=== PATIENT | male | born 1995 | race Caucasian/White ===

== ENCOUNTER 2020-06-15 16:25 | Emergency (ER) | payer BC ==
--- NOTE | 2020-06-15 16:44 | PDOC ---
Rapid Medical Evaluation Chief Complaint: Injury Time Seen by Provider: 06/15/20 16:42 Medical Evaluation: 06/15/20 16:43 CC: twisted left ankle Exam: tender to medial and lateral of left mallelous Plan: xray Discharge Disposition - Diagnosis Ankle injury - Referrals - Patient Instructions - Post Discharge Activity
[2020-06-15 16:54] VITALS: BP 144/85; PULSE 108; TEMP 98.6; BMI 29.8
--- OUTSIDE RECORDS SUMMARY | 2020-06-15 16:56 | XMS ---
:1995 Author Organization [facility] Care Team Providers Name Role Phone Ede Unavailable [phone] Ede Unavailable [phone] Ede Unavailable [phone] Ede Unavailable [phone] Ede Unavailable [phone] GRAVES IRWIN W Unavailable Unavailable ASHLEY BURT L Unavailable Unavailable ED STAFF PHYSICIAN Unavailable Unavailable Garden DPM Unavailable Garden DPM Unavailable Nlam Unavailable [phone] Nlam Unavailable [phone] MONY NEW CAR DRIVER Unavailable MONY NEW CAR DRIVER Unavailable MONY NEW CAR DRIVER Unavailable EDE NAYEL Unavailable Unavailable EMANUEL Moore Unavailable Unavailable MONY EVER Unavailable Unavailable Re-disclosure Warning The records that you are about to access may contain information from federally- assisted alcohol or drug abuse programs. If such information is present, then the following federally mandated warning applies: This information has been disclosed to you from records protected by federal confidentiality rules (42 CFR part 2). The federal rules prohibit you from making any further disclosure of this information unless further disclosure is expressly permitted by the written consent of the person to whom it pertains or as otherwise permitted by 42 CFR part 2. A general authorization for the release of medical or other information is NOT sufficient for this purpose. The Federal rules restrict any use of the information to criminally investigate or prosecute any alcohol or drug abuse patient.The records that you are about to access may contain highly sensitive health information, the redisclosure of which is protected by Article 27-F of the [facility] Public Health law. If you continue you may haveaccess to information: Regarding HIV / AIDS; Provided by facilities licensed or operated by the [facility] Office of Mental Health; or Provided by the [facility] Office for People With Developmental Disabilities. If such information is present, then the following [facility] mandated warning applies: This information has been disclosed to you from confidential records which are protected by state law. State law prohibits you from making any further disclosure of this information without the specific written consent of the person to whom it pertains, or as otherwise permitted by law. Any unauthorized further disclosure in violation of state law may result in a fine or [place] health care facility sentence or both. A general authorization for the release of medical or other information is NOT sufficient authorization for further disclosure. Family History Family Member Family Member Family Member Date of Description Data Source(s) Name Gender Status Status Unknown Female Diagnosis 04/03/2018 [facility] ([facility] 12:00:00 [facility]) Unknown Female [facility] 12[facility]00 AM [facility]) Unknown Female Diagnosis [facility] 12:[facility]:00 [facility]) Encounters Encounter Providers Location Date Indications Data Source(s ) Outpatient Attender: 02/09/20 Leeanna NAYEL EDE 20 [facility] er NAYELAdmitter 11:46:00 : NAYEL AM EDT - EDE 02/09/20 NAYELReferrer 20 : NAYEL 04:25:00 EDE NAYEL PM EDT Attender: 02/09/20 [facility] ([facility] Nayel Ede 20 [facility] 11:46:00 Center) AM EDT - 02/09/20 20 11:46:00 AM EDT Outpatient Admitter: 02/09/20 [facility] NAYEL 08:05:00 AM EDT Outpatient Attender: 02/04/[address] NEUENDORF 07:39:00 CARMEL AM EDT LAdmitter: CARMEL BURT LReferrer: CARMEL Killian Outpatient<td Attender: Kaley 01/14/20 CARROLL (M o[facility] Boogie ypeDescription [facility] 10:00:00 Neighbo rhood ID0">OFFICE AM EDT - [facility] [place] ) VISIT</td><td> 01/14/20 Esme Amayasom 20 DP</td><td>Yo 10:32:30 nkers AM EDT [facility]</td><td >01/14/2020</t d><td></td> Outpatient<td Attender: Kaley 01/13/20 CARROLL (M ount ID="encounterT [address] ypeDescription [facility] 10:15:00 Neigh borhood ID1">*OUTREACH AM EDT - [facility]) *</td><td>GIFT 01/13/20 Y MONY 20 NEW CAR DRIVER</td><td>Yo 11:59:00 nkers PM EDT [facility]</td><td >01/13/2020</t d><td></td> Outpatient Attender: 01/12/[address] MONY 03:10:00 GIFTYAdmitter PM EDT : EVER SYKES GIFTYReferrer : EVER CURTIS Outpatient<td Attender: Kaley 01/12/20 Seborrheic CARROLL (M ount ID="encounterT [place] [address] DermatitisAbdominal V ernon ypeDescription [facility] 11:45:00 BloatingDisorder of Neighborhood ID2">WALKINS</ AM EDT - [facility]) td><td>EVER 01/12/20 SinusesArthralgia - MONY 20 Ankle / FootUrinary NEW CAR DRIVER</td><td>Yo 01:19:26 CalculusSeborrheic nkers PM EDT DermatitisAbdominal Community [facility]Dis[facility]</td><td SinusesArthralgia - >01/12/2020</t Ankle / FootUrinary d><td><content CalculusSeborrheic ID="encounterD DermatitisAbdominal iagnosisID2-0" BloatingDisorder of >Urinary Nasal Calculus</cont SinusesArthralgia - ent>, <content Ankle / FootUrinary ID="encounterD CalculusAbdominal iagnosisID2-1" BloatingDisorder of >Arthralgia - Nasal Ankle / SinusesArthralgia - Foot</content> Ankle / FootUrinary , <content Calculus ID="encounterD iagnosisID2-2" >Disorder of Nasal Sinuses</shahid nt>, <content ID="encounterD iagnosisID2-3" >Abdominal Bloating</cont ent>, <content ID="encounterD iagnosisID2-4" >Seborrheic Dermatitis</co ntent></td> Seborrheic Dermatitis Abdominal Bloating Disorder of Nasal Sinuses Arthralgia - Ankle / Foot Urinary Calculus Seborrheic Dermatitis Abdominal Bloating Disorder of Nasal Sinuses Arthralgia - Ankle / Foot Urinary Calculus Seborrheic Dermatitis Abdominal Bloating Disorder of Nasal Sinuses Arthralgia - Ankle / Foot Urinary Calculus Abdominal Bloating Disorder of Nasal Sinuses Arthralgia - Ankle / Foot Urinary Calculus Emergency Attender: ZOEY Beltran 01/10/2020 04:38 :00 PM [facility] CAttender: MIRIAM GAYLE EDT - 01/10/2020 Medical Center WAttender: STAFF ED STAFF 07:50:00 PM EDT PHYSICIANAdmitter: ZOEY Moore Patient discharged. Attender: Cristino Chang [facility] 12/14[facility]2019 [facility]:51:[facility] AM EDT - 12/14/2019 [facility] 11:51:00 AM EDT Center) Outpatient 12/11/2019 12:38:00 [facility] EDT Medical Center Outpatient [facility] Medications Medication Brand Start Product Dose Route Administrative Pharmacy St atus Indications Reaction Description Data Name Date Form Instructions Instructions Source(s) Selsun Blue Selsun 01/11/ APPLICAT active Rocio sun Blue MAMIE Dry Scalp Blue 2020 ION UNIT (Mount 1% External Dry 12:00: Boogie Shampoo Scalp 00 AM [place] [facility] al Shampo o [place] 0.65% [place] 01/11/ CAPFUL 1 active Sea Soft MAMIE Nasal 0.65% 2020 DOSING (Mount Solution Nasal 12:00: UNIT Boogie Soluti 00 AM [place] on EDT [facility]) Insurance Providers Payer name Policy type / Policy ID Covered Covered republican's Policy Plan Coverage type republican ID relationship to Manuel Information manuel BC PPO [id number] FA [id number] BLUE CROSS O [id number] CLAIMS [id number] self [id number] BLUE CROSS [id number] self [id number] BCBS of Individual 0 Self 0 [place] of Individual 0 Self 0 [place] of Individual 0 Self 0 [place] of Individual 0 Self 0 [place] Clear ANTHEM [id number] self [id number] BCBS Problems, Conditions, and Diagnoses Code Display Name Description Problem Type Effective Data Sour ce(s) Dates [id number] Depressive Depression Problem 01/12/2020 MAMIE (Moun t disorder 12:00:00 AM Boogie (disorder) [facility]) [id number] Attention deficit Attention-deficit Problem 01/12/2020 MAMIE (Mount hyperactivity Hyperactivity 12:00:00 AM Boogie disorder Disorder [facility] [id number] Anxiety disorder Anxiety Disorder Problem 01/12/2020 GR EENWAY (Mount (disorder) of Unknown (axis 12:00:00 AM Boogie Iii) [facility] [id number] Depressive Depression Problem 01/12/2020 MAMIE (Moun t disorder 12:00:00 AM Boogie (disorder) [facility]) [id number] Attention deficit Attention-deficit Problem 01/12/2020 MAMIE (Mount hyperactivity Hyperactivity 12:00:00 AM Boogie disorder Disorder [facility] (disorder) [facility]) [id number] Anxiety disorder Anxiety Disorder Problem 01/12/2020 GR EENWAY (Mount (disorder) of Unknown (axis 12:00:00 AM Boogie Iii) Etiology EDT [facility]) [id number] Depressive Depression Problem 01/12/2020 MAMIE (Moun t disorder 12:00:00 AM Boogie (disorder) [facility]) [id number] Attention deficit Attention-deficit Problem 01/12/2020 MAMIE (Mount hyperactivity Hyperactivity 12:00:00 AM Boogie disorder Disorder EDT [facility] (disorder) [facility]) [id number] Anxiety disorder Anxiety Disorder Problem 01/12/2020 GR EENWAY (Mount (disorder) of Unknown (axis 12:00:00 AM Boogie Iii) Etiology EDT [facility]) 56886320 Depressive Depression Problem 01/12/2020 MAMIE (Moun t disorder 12:00:00 AM Boogie (disorder) [facility]) [id number] Attention deficit Attention-deficit Problem 01/12/2020 MAMIE (Mount hyperactivity Hyperactivity 12:00:00 AM [facility]ie [facility]) [id number] Anxiety disorder Anxiety Disorder Problem 01/12/2020 GR EENWAY (Mount (disorder) of Unknown (axis 12:00:00 AM Boogie Iii) Etiology EDT [facility]) F32.9 Major depressive MAJOR DEPRESSIVE Diagnosis 02/09/2020 [facility] disorder, single DISORDER, SINGLE 11:46:00 AM edical Center episode, EPISODE, EDT unspecified UNSPECIFIED N13.2 Hydronephrosis HYDRONEPHROSIS Diagnosis 02/09/2020 [facility] Leeanna with renal and WITH RENAL AND 11:46:00 AM Medic al Center ureteral calculous URETERAL CALCULOUS EDT obstruction OBSTRUCTION M25.571 Pain in right PAIN IN RIGHT Diagnosis 01/12/2020 [facility] ankle and joints ANKLE AND JOINTS 03:10:00 PM M edical Center of right foot OF RIGHT FOOT EDT N23 Unspecified renal UNSPECIFIED RENAL Diagnosis 01/10/2020 [facility] Leeanna colic COLIC 04:38:00 PM Medical Cente r EDT R10.9 Unspecified UNSPECIFIED Diagnosis 01/10/2020 [place] abdominal pain ABDOMINAL PAIN 04:38:00 PM Medic al Center EDT Results ID Date Data Source [id number] 02/09/2020 02:25:00 PM EDT [facility] 400 Name Value Range Interpretation Code Description Data Hali rce(s) Supporting Document(s ) UNK <item><content [facility]anna monteCode="Bold"> Medical [facility] er Culture Status </content>
<t able><tbody><tr>< td>Specimen Number:</td><td>[id number]</td></tr ><tr><td>Sample Collection Date/Time: </td><td> 0 2:25 PM</td></tr><tr>< td>Specimen Source:</td><td>U RINE</td></tr><tr ><td>Culture Status:</td><td>P reliminary </td></tr><tr><td >Culture Report:</td><td>C ulture in progress </td></tr><tr><td >Urine Culture:</td><td> Collection Plate Date: 02/09/2020 15:30 </td></tr></tbody ></table></item> UNK <item><content Saint Durán styleCode="Bold"> Medical [facility] er Culture Report </content>
<t able><tbody><tr>< td>Specimen Number:</td><td>[id number]</td></tr ><tr><td>Sample Collection Date/Time: </td><td> 0 2:25 PM</td></tr><tr>< td>Specimen Source:</td><td>U RINE</td></tr><tr ><td>Urine Culture:</td><td> Collection Plate Date: 02/09/2020 15:30 </td></tr><tr><td >Culture Status:</td><td>P reliminary </td></tr><tr><td >Culture Report:</td><td>C ulture in progress </td></tr></tbody ></table></item> ID Date Data Source [id number] 02/04/2020 12:00:00 AM EDT [facility] Name Value Range Interpretation Code Description Data Hali rce(s) Supporting Document(s ) 2019-nCoV [facility] RNA XXX ZACK+probe- Imp This lab was ordered by [facility] and reported by [facility]. ID Date Data Source [id number] 01/19/2020 10:06:45 AM EDT [place] ([place] [id number] [facility]) Name Value Range Interpretation Description Data Source(s ) Supporting Code Document(s ) No Results No Results No Results MAMIE ([facility]) ID Date Data Source [id number] 01/13/2020 10:16:42 AM EDT [place] ([place] [id number] [facility]) Name Value Range Interpretation Description Data Source(s ) Supporting Code Document(s ) No Results No Results No Results MAMIE ([facility]) ID Date Data Source [id number] 01/12/2020 01:19:08 PM EDT [place] ([place] [id number] [facility]) Name Value Range Interpretation Description Data Source(s ) Supporting Code Document(s ) No Results No Results No Results MAMIE ([facility]) ID Date Data Source [id number] 01/12/2020 01:12:38 PM EDT [place] ([place] [id number] [facility]) Name Value Range Interpretation Description Data Source(s ) Supporting Code Document(s ) No Results No Results No Results MAMIE ([facility]) Procedure Social History Code Duration Value Status Description Data Source(s ) Smoking 01/10/2020 Denies Ever completed Denies Ever Smoked [facility] 05:07:00 PM EDT Smoked Medical C enter Smoking 01/10/2020 Denies Ever completed Denies Ever Smoked [facility] 04:42:00 PM EDT Smoked Medical C enter Vital Signs ID Date Data Source UNK Name Value Range Interpretation Code Description Data Source(s) PhenX - pain, 0 0 MAMIE ([facility] abdominal - type [facility]) protocol Patient is here to see the Anesthesiology Physician Assistant. PhenX - pain, abdominal - type and 0 0 CARROLL ([facility] protocol [facility]) Follow ups for kidney stones. He was in the hospital (waiting for documents) Body surface area Derived from 1.99 m2 1.99 m2 CARROLL ([facility]) Follow ups for kidney stones. He was in the hospital (waiting for documents) Body mass index (BMI) 28.6 kg/m2 28.6 kg/m2 [facility] ([place] [[facility]] [facility]) Follow ups for kidney stones. He was in the hospital (waiting for documents) Body weight 188 [lb_av] 188 [lb_av] CARROLL ([facility]) Follow ups for kidney stones. He was in the hospital (waiting for documents) Body height 68 [in_us] 68 [in_us] CARROLL ([facility]) Follow ups for kidney stones. He was in the hospital (waiting for documents) Body temperature 98 [degF] 98 [degF] CARROLL ([facility]) Follow ups for kidney stones. He was in the hospital (waiting for documents) Heart rate 99 /min 99 /min CARROLL ([facility]) Follow ups for kidney stones. He was in the hospital (waiting for documents) Diastolic blood pressure 86 mm[Hg] 86 mm[Hg] CARROLL ([facility]) Follow ups for kidney stones. He was in the hospital (waiting for documents) Systolic blood pressure 135 mm[Hg] 135 mm[Hg] [facility] ([facility]) Follow ups for kidney stones. He was in the hospital (waiting for documents) Body temperature 36.252796 Shavon 36.689341 Shavon [facility] Respiratory rate 18 /min 18 /min [facility] Oxygen saturation in Arterial 98 % 98 % [facility] blood by Pulse oximetry C enter Heart rate 74 /min 74 /min [facility] Diastolic blood pressure 92 mm[Hg] 92 mm[Hg] [facility] Systolic blood pressure 163 mm[Hg] 163 mm[Hg] S [facility] Patient Treatment Plan of Care Planned Activity Planned Date Details Description Data Source (s) Karen Blue Dry Scalp 01/12/2020 12:00:00 MAMIE ([place] 1% External Shampoo AM EDT [facility]) [place] 0.65% Nasal 01/12/2020 12:00:[address] ([place] Solution AM EDT [facility])
--- NOTE | 2020-06-15 17:52 | PDOC ---
History of Present Illness - General Chief Complaint: Injury Stated Complaint: L FOOT INJURY Time Seen by Provider: 06/15/20 16:42 History Source: Patient Exam Limitations: No Limitations - History of Present Illness Initial Comments: 06/15/20 17:56 Patient is a 24-year-old male who presents to the ED with a left ankle injury after inverting his ankle while hiking yesterday. He states he rested most of yesterday evening and today. He came to the ED for evaluation because he was concerned this was broken. He had crutches from his brother so he has been using those. He denies any numbness or tingling. He states he has not been able to walk on it since yesterday. He states he has a history of kidney stones and no allergies to medications. Past History - Medical History Allergies/Adverse Reactions: Allergies Allergy/AdvReac Type Severity Reaction Status Date / Time No Known Allergies Allergy Unverified 06/15/20 16:44 COPD: No CHF: No - Psycho-Social/Smoking History Smoking History: Never smoked Have you smoked in the past 12 months: No Information on smoking cessation initiated: No - Substance Abuse Hx (Audit-C & DAST Scrn) How often the patient has a drink containing alcohol: Never Score: In Men: 4 or > Positive; In Women: 3 or > Positive: 0 Screen Result (Pos requires Nsg. Audit-10AR): Negative In the last yr the pt used illegal drug/Rx for NonMed reason: No Score: Yes response is considered Positive: 0 Screen Result (Positive result requires Nsg. DAST-10): Negative Review of Systems - Review of Systems Comments:: 06/15/20 17:57 - Review of Systems Able to Perform ROS?: Yes Constitutional: No: Fever, Chills, Loss of Appetite, Night Sweats, Weakness HEENTM: No: Eye Pain, Vision changes, Ear Pain, Throat Pain, Throat Swelling, Mouth Pain, Difficulty Swallowing Respiratory: No: Cough, Shortness of Breath, Wheezing, Sputum Production Cardiac (ROS): No: Chest Pain, Chest Tightness, Palpitations, Irregular Heart Beat, Edema ABD/GI: No: Nausea, Vomiting, Abdominal Pain, Diarrhea Musculoskeletal: No: Muscle Pain, Back Pain, Joint Pain, Muscle Weakness, Neck Pain; positive: Left ankle injury Integumentary: No: Lesions, Rash Neurological: No: Headache, Numbness, Tingling, Weakness, Speech Difficulties *Physical Exam - Vital Signs Last Vital Signs Temp Pulse Resp BP Pulse Ox 98.6 F 108 H 18 144/85 100 06/15/20 16:41 06/15/20 16:41 06/15/20 16:41 06/15/20 16:41 06/15/20 16:41 - Physical Exam 06/15/20 17:58 - Physical Exam General Appearance: Nourished, Appropriately Dressed, No Distress HEENT: EOMI, Normal Voice, Hearing Grossly Normal Neck: Supple, No Lymphadenopathy (R), No Lymphadenopathy (L), No Rigidity, No Decreased range of motion Respiratory/Chest: Lungs Clear, Normal Breath Sounds. No Respiratory Distress, No Accessory Muscle Use Cardiovascular: Regular Rhythm, Regular Rate, S1, S2 Musculoskeletal: Normal Inspection. Left ankle with significant lateral swelling appreciated. DP and PT pulses intact. Tenderness to the distal fibula appreciated. No tenderness over the fifth metatarsal. Brisk capillary refill appreciated. Pain exacerbated with inversion and eversion stress. Patient able to dorsi and plantar stress without difficulty. No proximal tibia or fibular pain. Mild medial ankle tenderness to palpation. Extremity: Normal Capillary Refill, Normal Inspection Integumentary: Normal Color, Dry. No Rash Neurologic: data processing mechanic II-XII NML intact, Fully Oriented, Alert, Normal Mood/Affect, Normal Response Medical Decision Making - Medical Decision Making 06/15/20 17:48 Assessment: Patient is a 24-year-old male with a left ankle sprain. Plan: -Ankle stirrup splint placed -X-ray reviewed and no fracture appreciated -Patient has crutches which he will continue to remain nonweightbearing until cleared by orthopedics -Referral to orthopedics given -He understands and agrees with this treatment plan and he is stable for discharge Discharge - Discharge Information Problems reviewed: Yes Clinical Impression/Diagnosis: Ankle injury Qualifiers: Encounter type: initial encounter Laterality: left Qualified Code(s): S99.912A - Unspecified injury of left ankle, initial encounter Left ankle sprain Qualifiers: Encounter type: initial encounter Involved ligament of ankle: other ligament Qualified Code(s): S93.492A - Sprain of other ligament of left ankle, initial encounter Condition: Stable Disposition: HOME - Follow up/Referral Referrals: Adán Das DO [Staff Physician] - 1 week - Patient Discharge Instructions Patient Printed Discharge Instructions: DI for Ankle Sprain Additional Instructions: Ice and elevate your ankle. Take Tylenol or ibuprofen for pain. Use the crutches and do not bear weight until you are cleared by orthopedics. Follow-up with orthopedics within 1 week for repeat evaluation. Referral given. - Post Discharge Activity Work/Back to School Note: Back to Work
== END 2020-06-15 17:56 | disposition home or self-care (01) ==
LOC: JERFT 16:25 → JER 16:25 → JERFT 17:56
DX: S99.912A Unspecified injury of left ankle, initial encounter (principal); S93.492A Sprain of other ligament of left ankle, initial encounter
CPT/HCPCS: 73610-TC-LT-FY; 99284-25